=== PATIENT | female | born 1965 ===

== ENCOUNTER → 2021-01-23 09:37 | Outpatient (BNVA) | payer BC, SELFPAY | PROVIDERS: Visit Provider Internal Medicine ==

== ENCOUNTER → 2021-03-18 14:23 | Outpatient (BNVA) | payer BC, SELFPAY | PROVIDERS: Visit Provider Internal Medicine ==

== ENCOUNTER 2024-03-24 17:54 | Inpatient (IN) | payer MEDICAID, SELFPAY ==
--- NOTE | ~2024-03-24 | XR_ITS ---
EXAMINATION: CR RIGHT FOOT. CR RIGHT ANKLE. CLINICAL INFORMATION: Swelling and redness right foot. Rule out osteomyelitis. Pain and swelling of right ankle. COMPARISON: None available. TECHNIQUE: 3 views of the right foot. 3 views of the right ankle. FINDINGS: Right foot and right ankle: There is prominent diffuse soft tissue swelling over the ankle, possibly related to systemic factors rather than local pathology. No acute fracture or dislocation is seen. The ankle mortise is symmetric and intact. No ankle joint effusion is seen. The bones of the right ankle and foot are intact. No abnormal periosteal reaction or focal lytic or destructive bone lesion is seen to suspect osteomyelitis. There is mild osteoarthritic change at the DIP joints of all digits. There is diffuse osteopenia. Prominent excrescences seen arising from the tip of the second digit, presumably an overgrown and hypertrophied nail or something else overlying the patient. XR/XR ankle RT min 3V IMPRESSION: * Prominent soft tissue swelling over the right ankle, possibly related to systemic factors rather than local pathology. Please correlate clinically. * No acute fracture or dislocation in the right foot or right ankle. * No plain film evidence of osteomyelitis. * Mild osteoarthritic changes in the toes.
--- NOTE | ~2024-03-24 | XR_ITS ---
EXAMINATION: CR RIGHT FOOT. CR RIGHT ANKLE. CLINICAL INFORMATION: Swelling and redness right foot. Rule out osteomyelitis. Pain and swelling of right ankle. COMPARISON: None available. TECHNIQUE: 3 views of the right foot. 3 views of the right ankle. FINDINGS: Right foot and right ankle: There is prominent diffuse soft tissue swelling over the ankle, possibly related to systemic factors rather than local pathology. No acute fracture or dislocation is seen. The ankle mortise is symmetric and intact. No ankle joint effusion is seen. The bones of the right ankle and foot are intact. No abnormal periosteal reaction or focal lytic or destructive bone lesion is seen to suspect osteomyelitis. There is mild osteoarthritic change at the DIP joints of all digits. There is diffuse osteopenia. Prominent excrescences seen arising from the tip of the second digit, presumably an overgrown and hypertrophied nail or something else overlying the patient. XR/XR foot RT 2V IMPRESSION: * Prominent soft tissue swelling over the right ankle, possibly related to systemic factors rather than local pathology. Please correlate clinically. * No acute fracture or dislocation in the right foot or right ankle. * No plain film evidence of osteomyelitis. * Mild osteoarthritic changes in the toes.
--- NOTE | ~2024-03-24 | US_ITS ---
EXAMINATION: US VENOUS ULTRASOUND WITH DOPPLER LOWER EXTREMITY, RIGHT CLINICAL INFORMATION: Pain and swelling. COMPARISON: None available. TECHNIQUE: Ultrasound of the deep veins is performed from the hip to the calf with compression sonography and color and pulse Doppler assessment. Spectral analysis with color-flow imaging is performed. FINDINGS: There is normal venous compression and respiratory variation and augmented flow. The visualized common femoral vein, superficial femoral vein, profunda femoral vein, popliteal vein, and the trifurcation region shows no evidence of deep venous thrombosis. There is no significant popliteal fossa cyst. Marked soft tissue edema is noted around the ankle. There are a few prominent inguinal lymph nodes which are normal in morphology and within normal limits in size. If the patient's symptoms persist, followup ultrasound in 5 days 7 days might be of value to exclude proximal propagation from a non-visualized calf vein. US/US venous duplex LE RT IMPRESSION: No DVT demonstrated in the right lower extremity.
[2024-03-24 18:00] VITALS: BP 132/72; PULSE 89; RESP 18; TEMP 37.1; O2SAT 98; BMI 28.2
--- NOTE | 2024-03-24 18:18 | ED.EXTPRO ---
HPI - Extremity Problem General Chief complaint: Extremity Problem Stated complaint: right swollen toe Time Seen by Provider: 03/24/24 20:46 History of Present Illness ED Provider: Cassidy NICOLE Narrative: The patient is a 58-year-old woman who says that she has had problems with a fungal toenail on the 2nd toe of her right foot for some time. Starting about a week ago she has had some pain in the toe and she has had worsening swelling of the foot and the lower leg. She finally came to the hospital for evaluation of this problem tonight. She has had no fever, sweats, chills. She says that she has not been able to get into a decorating equipment setter for any care of the toenail. Related Data Previous Rx's ?Medication ?Instructions ?Recorded naltrexone 50 mg tablet 50 mg PO DAILY 14 days #14 tabs 03/18/21 naltrexone microspheres 380 mg 380 mg IM Q4W 30 days #1 ea 03/18/21 intramuscular suspension,extended release (Vivitrol) Allergies Allergy/AdvReac Type Severity Reaction Status Date / Time No Known Allergies Allergy Verified 03/24/24 18:06 Review of Systems Review of Systems: Yes all other systems are reviewed and are negative [facility] Past Medical History Medical History Generalized anxiety disorder Peripheral neuropathy Psoriasis Social History Social History Alcohol intake: former Smoked in Last 30 Days: Yes Use of substances other than those prescribed or required for medical reasons: No Advance Directives: No Advance Directives Information Provided: No Do you have a plan to hurt others: No Plan Patient : No Physical Exam Vital Signs: Vital Signs: Last Vital Signs Temp 99.7 F 03/24/24 22:00 Pulse 72 03/24/24 22:00 Resp 14 03/24/24 22:00 BP 138/75 03/24/24 22:00 Pulse Ox 100 03/24/24 22:00 O2 Del Method Room Air 03/24/24 22:00 BMI result Body Mass Index 28.2 Const: Other: The patient is awake, alert, pleasant, cooperative. She seems nontoxic. She does not seem in pain or respiratory distress. HEENT: Head: Yes normal to inspection Face and sinus: Yes normal facial exam Mouth: Normal oral and palatal mucosa present Throat: Yes posterior oropharynx normal Eyes: General: appearance normal, both eyes and all related structures Neck: Neck: Yes full ROM and Yes no lymphadenopathy Resp: Effort & Inspection: normal respiratory effort Auscultation: clear to auscultation bilaterally Cardio: Rate: regular rate Rhythm: regular rhythm Heart sounds: S1 normal heart sound present and S2 normal heart sound present GI: Other: Abdomen is soft and nontender Skin: Other: There is swelling to the skin of the right foot and the right lower leg generally. There is a faint reddish hue to the skin but no true erythema. Is some erythema on the skin of the 2nd toe of the right foot. The toenail of the right 2nd toe was distinctly long and abnormal consistent with a fungal infection. Neuro: Other: The patient is awake, alert, pleasant, cooperative. Mental status is normal. Cranial nerves are intact. She moves all extremities normally. She may have some slight diminished sensation in the feet. Extrem: Other: The right lower leg and foot are swollen and mildly tender. The right 2nd toe has a very abnormal toenail. The toe itself is somewhat erythematous. Course Course Course Narrative: This is a rapid medical exam. Defer additional HPI, ROS, PE to primary provider. 58-year-old female here with complaints of pain in her toe which radiates up her right foot and ankle with swelling and redness. Will obtain x-rays, labs -A. 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 The source of the infection problem with a large chronic fungal infection of the toenail of the 2nd toe. I was able to trim this very large toenail with a trauma anna. Given the degree of swelling to the lower leg and ankle and foot we obtained a DVT ultrasound which is negative. X-rays of the foot and ankle has been ordered at triage. The original reading of the foot x-ray was negative. I reviewed the images certain that the cortex of the distal phalanx of the 2nd toe, the toe of greatest concern, looked distinctly irregular and possibly nonintact. I contacted the radiologist who agreed that the cortex of the distal phalanx was not obviously normal and potentially consistent with osteomyelitis. Given the area of the edematous skin of the foot and lower leg and given the question of osteomyelitis in the distal phalanx of the 2nd toe the patient will be admitted to the hospital for further care. The patient will be started on vancomycin. Lab Data 03/24/24 18:59 03/24/24 18:59 Labs: Lab Results 03/24/24 Range/Units 18:59 WBC 10.4 (4.8-10.8) X10*3/uL RBC 4.14 L (4.20-5.50) X10*6/uL Hgb 12.8 (12.0-16.0) g/dl Hct 37.7 (37.0-47.0) % MCV 91.1 (80.0-98.0) fL MCH 30.9 (27.0-33.0) pg MCHC 34.0 (31.0-35.0) g/dl RDW 12.3 (11.0-16.0) % Plt Count 199 (160-400) X10*3/uL MPV 11.0 (9.4-12.3) fL Immature Gran % (Auto) 0.5 H (0.0-0.4) % Neut % (Auto) 72.7 (45-73) % Lymph % (Auto) 15.4 L (20-40) % [place] % (Auto) 9.6 (2-11) % Eos % (Auto) 1.4 (0-4) % Baso % (Auto) 0.4 (0-2) % Lymph # (Auto) 1.6 (1.2-4.9) X10*3/uL [place] # (Auto) 1.0 (0.1-1.2) X10*3/uL Eos # (Auto) 0.2 (0.0-0.4) X10*3/uL Baso # (Auto) 0.0 (0.0-0.2) X10*3/uL Abs Immat Gran (auto) 0.05 H (0.00-0.03) X10*3/uL Absolute Neuts (auto) 7.5 (2.0-8.3) x10*3/uL Absolute Nucleated RBC 0.000 (0.0-0.012) X10*3/uL Nucleated RBC % (auto) 0.0 (0.0-0.2) /100WBC Sodium 136 (135-145) mmol/L Potassium 4.0 (3.3-5.1) mmol/L Chloride 100 (96-108) mmol/L Carbon Dioxide 25 (22-29) mmol/L Anion Gap 15 (12-20) BUN 10 (9-16) mg/dL Creatinine 0.78 (0.5-1.4) mg/dL Estim Creat Clear Calc 98.7 Estimated GFR > 60 Random Glucose 85 (60-115) mg/dL Lactic Acid 1.4 (0.5-2.0) mmol/L Calcium 9.3 (8.4-10.2) mg/dL Total Bilirubin 0.3 (0.0-1.0) mg/dL Direct Bilirubin 0.1 (0.0-0.5) mg/dL AST 12 (5-31) U/L ALT 9 (0-31) U/L Alkaline Phosphatase 79 (39-117) U/L C-Reactive Protein 6.07 H (< or = 0.50) mg/dL Total Protein 7.0 (6.5-8.0) g/dL Albumin 3.8 (3.5-5.0) g/dL Lipase 30 (8-78) U/L Discharge Plan Discharge Clinical Impression: Cellulitis of right leg Patient Disposition: Admitted As Inpatient
[2024-03-24 19:08] LABS: MANUAL DIFF FLAG NO
[2024-03-24 19:18] LABS: Lactic Acid 1.4 mmol/L (0.5-2.0)
[2024-03-24 19:21] LABS: C Reactive Protein 6.07 mg/dL (< or = 0.50)
[2024-03-24 19:24] LABS: Alanine Aminotransferase 9 U/L (0-31); Albumin Level 3.8 g/dL (3.5-5.0); Alkaline Phosphatase 79 U/L (39-117); Anion Gap 15 (12-20); Aspartate Amino Transferase 12 U/L (5-31); Bilirubin Direct 0.1 mg/dL (0.0-0.5); Bilirubin Total 0.3 mg/dL (0.0-1.0); Blood Urea Nitrogen 10 mg/dL (9-16); Calcium 9.3 mg/dL (8.4-10.2); Carbon Dioxide 25 mmol/L (22-29); Chloride 100 mmol/L (96-108); Creatinine Clr Calc Pharmacy 98.7; Estimated Glomerular Filt Rate > 60; Glucose Random 85 mg/dL (60-115); Lipase 30 U/L (8-78); Sodium 136 mmol/L (135-145)
[2024-03-24 19:43] LABS: Basophils Percent Auto 0.4 % (0-2); Eosinophils Absolute Auto 0.2 X10*3/uL (0.0-0.4); Eosinophils Percent Auto 1.4 % (0-4); Hematocrit 37.7 % (37.0-47.0); Hemoglobin 12.8 g/dl (12.0-16.0); Imm Gran Abs Auto 0.05 X10*3/uL (0.00-0.03); Imm Gran Pct Auto 0.5 % (0.0-0.4); Lymphocytes Absolute Auto 1.6 X10*3/uL (1.2-4.9); Lymphocytes Percent Auto 15.4 % (20-40); Mean Corpuscular Hemoglobin 30.9 pg (27.0-33.0); Mean Corpuscular Volume 91.1 fL (80.0-98.0); Monocytes Percent Auto 9.6 % (2-11); Neutrophils Absolute Auto 7.5 x10*3/uL (2.0-8.3); Neutrophils Percent Auto 72.7 % (45-73); Platelet Count 199 X10*3/uL (160-400); Red Blood Count 4.14 X10*6/uL (4.20-5.50); Red Cell Distribution Width 12.3 % (11.0-16.0); White Blood Count 10.4 X10*3/uL (4.8-10.8)
[2024-03-24 20:00] VITALS: BP 108/53; PULSE 77; RESP 14; TEMP 37.1; O2SAT 100
--- NOTE | 2024-03-24 20:18 | PC.NURSE ---
pt from home, a&ox4, respirations even and unlabored. pt reports having an ingrown toe nail on second toe of the right foot for a few weeks, reports x3 days ago she developed swelling of the right leg. pt reports she has pain when walking on the toe and but denies leg pain. +pedal pulses noted. pt noted to have non pitting swelling to the right leg with redness and warmth. pt denies n/v/d. pt ambulatory at this time. reports she has an appointment with podiatry.
[2024-03-24 22:00] VITALS: BP 138/75; PULSE 72; RESP 14; TEMP 37.6; O2SAT 100
--- NOTE | 2024-03-24 22:25 | PM.IMHP ---
History of Present Illness Date of Service: 03/24/24 Chief Complaint: Foot infection This is a 58-year-old female with pertinent history of psoriasis, mood disorder, peripheral neuropathy who presents to the emergency department for concerns of right foot infection. Patient states she noted discoloration of right 2nd toe about a week ago. She has noticed that her right foot with ankle has become red, warm and swollen over the last few days which is progressive. She thinks the infection is spreading. Does have psoriasis which flares up in the summer but is compliant with home topical cream. No history of diabetes mellitus. She denies fever, chills, chest discomfort, palpitations, shortness of breath, abdominal pain, changes in urinary or bowel habits. In the emergency department, x-ray with suspicion of osteomyelitis. Review of Systems Constitutional: Constitutional: Reports no additional constitutional complaints Cardiovascular: Cardiovascular: Reports no additional cardiovascular complaints Respiratory: Respiratory: Reports no additional respiratory complaints Gastrointestinal: Gastrointestinal: Reports no additional gastrointestinal complaints Genitourinary: Genitourinary: Reports no additional female genitourinary complaints [facility] Medical History Generalized anxiety disorder Peripheral neuropathy Psoriasis Functional capacity: independent ambulation Pertinent family history: No family history of early CAD Social History Alcohol intake: former Smoked in Last 30 Days: Yes Use of substances other than those prescribed or required for medical reasons: No Advance Directives: No Advance Directives Information Provided: No Do you have a plan to hurt others: No Plan Patient : No Meds Allergies Allergy/AdvReac Type Severity Reaction Status Date / Time No Known Allergies Allergy Verified 03/24/24 18:06 Active Medications: Current Medications Sodium Chloride (Ns) 1,000 mls @ 999 mls/hr IV .Q1H1M [place] Stop: 03/24/24 23:30 Physical Exam Vital Signs and Narrative: Vital Signs: Last Vital Signs Temp 99.7 F 03/24/24 22:00 Pulse 72 03/24/24 22:00 Resp 14 03/24/24 22:00 BP 138/75 03/24/24 22:00 Pulse Ox 100 03/24/24 22:00 O2 Del Method Room Air 03/24/24 22:00 BMI result Body Mass Index 28.2 Middle-aged female lying in bed in no distress Neck supple, no JVD Regular rate and rhythm, S1-S2 heard Regular breath sounds bilaterally, no wheezing or crackles appreciated Abdomen soft nontender, no guarding, no rigidity Patient is awake, alert and oriented to self, place, time and person ; no focal motor deficit Psych: Normal mood Right foot with erythema, swelling and warmth ; right 2nd toenail with yellow discoloration, thickening Erythematous macules, papules and plaques with scaling on extremities Results Labs 03/24/24 18:59 03/24/24 18:59 Labs: Laboratory Results - last 24 hr 03/24/24 18:59 MCV 91.1 MCH 30.9 MCHC 34.0 RDW 12.3 Plt Count 199 MPV 11.0 Immature Gran % (Auto) 0.5 H Neut % (Auto) 72.7 Lymph % (Auto) 15.4 L [place] % (Auto) 9.6 Eos % (Auto) 1.4 Baso % (Auto) 0.4 Lymph # (Auto) 1.6 [place] # (Auto) 1.0 Eos # (Auto) 0.2 Baso # (Auto) 0.0 Abs Immat Gran (auto) 0.05 H Absolute Neuts (auto) 7.5 Absolute Nucleated RBC 0.000 Nucleated RBC % (auto) 0.0 Anion Gap 15 Estim Creat Clear Calc 98.7 Estimated GFR > 60 Random Glucose 85 Lactic Acid 1.4 Calcium 9.3 Total Bilirubin 0.3 Direct Bilirubin 0.1 AST 12 ALT 9 Alkaline Phosphatase 79 C-Reactive Protein 6.07 H Total Protein 7.0 Albumin 3.8 Lipase 30 Imaging Radiologist's Impressions: Impressions Ankle X-Ray 03/24/24 18:46 IMPRESSION: * Prominent soft tissue swelling over the right ankle, possibly related to systemic factors rather than local pathology. Please correlate clinically. * No acute fracture or dislocation in the right foot or right ankle. * No plain film evidence of osteomyelitis. * Mild osteoarthritic changes in the toes. Foot X-Ray 03/24/24 18:46 IMPRESSION: * Prominent soft tissue swelling over the right ankle, possibly related to systemic factors rather than local pathology. Please correlate clinically. * No acute fracture or dislocation in the right foot or right ankle. * No plain film evidence of osteomyelitis. * Mild osteoarthritic changes in the toes. Assessment and Plan (1) Cellulitis of right leg: Status: Acute Plan This is a 58-year-old female with pertinent history of psoriasis, mood disorder, peripheral neuropathy who presents to the emergency department for concerns of right foot infection. #. Right foot cellulitis with osteomyelitis: Noted osteomyelitis changes on x-ray of the foot. Initiating IV vancomycin. No sepsis. Consulted Infectious Disease #. Onychomycosis: Initiated oral terbinafine #. Psoriasis: Continue home topical medication #. Mood disorder: Continue home anxiolytic #. Peripheral neuropathy: On gabapentin Med rec pending DVT prophylaxis: Lovenox Full code Admit as inpatient and will require two night minimum hospital stay for IV antibiotics (as above), which is not possible in a lesser acute setting. Quality Stroke Does the patient have a stroke diagnosis?: No VTE Prior VTE?: No VTE Risk Level:: Medical - moderate - high VTE Device Contraindication: Treatment Not Indicated VTE Drug Contraindication: N/A - Med Ordered
[2024-03-24] MEDS: 0.9 % Sodium Chloride 1,000 ML 999 ML IV (22:31)
--- NOTE | 2024-03-24 22:32 | PC.NURSE ---
20G placed in left forearm, iv fluids administered at this time.
[2024-03-24] MEDS: Enoxaparin Sodium 40 MG/0.4 ML SYRINGE SUBCUT (23:11)
--- NOTE | 2024-03-24 23:31 | PC.NURSE ---
report given to Eleanor in [facility].
[2024-03-25 00:07] VITALS: BP 150/71; PULSE 79; RESP 17; TEMP 36.6; O2SAT 98
--- NOTE | 2024-03-25 04:45 | PC.NURSE ---
Pt A&O x4. VSS. Pt arrived on unit with vanco infusing. Pt has no complaints. Redness and edema to RLE. Pt has cane at bedside, up to bathroom x1. Call barnett within reach. Pt able to make needs known.
[2024-03-25 04:54] LABS: MANUAL DIFF FLAG NO
[2024-03-25 04:58] LABS: Basophils Percent Auto 0.5 % (0-2); Eosinophils Absolute Auto 0.2 X10*3/uL (0.0-0.4); Eosinophils Percent Auto 1.9 % (0-4); Hematocrit 34.7 % (37.0-47.0); Hemoglobin 11.9 g/dl (12.0-16.0); Imm Gran Abs Auto 0.04 X10*3/uL (0.00-0.03); Imm Gran Pct Auto 0.5 % (0.0-0.4); Mean Corpuscular HGB Conc 34.3 g/dl (31.0-35.0); Mean Corpuscular Hemoglobin 30.8 pg (27.0-33.0); Mean Corpuscular Volume 89.9 fL (80.0-98.0); Mean Platelet Volume 10.4 fL (9.4-12.3); Monocytes Absolute Auto 0.8 X10*3/uL (0.1-1.2); Monocytes Percent Auto 9.9 % (2-11); Neutrophils Percent Auto 62.2 % (45-73); Platelet Count 185 X10*3/uL (160-400); Red Blood Count 3.86 X10*6/uL (4.20-5.50); Red Cell Distribution Width 12.2 % (11.0-16.0)
[2024-03-25 05:13] LABS: Anion Gap 10 (12-20); Blood Urea Nitrogen 8 mg/dL (9-16); Calcium 8.5 mg/dL (8.4-10.2); Carbon Dioxide 27 mmol/L (22-29); Chloride 107 mmol/L (96-108); Creatinine Clr Calc Pharmacy 113.2; Estimated Glomerular Filt Rate > 60; Glucose Random 105 mg/dL (60-115); Potassium 4.2 mmol/L (3.3-5.1); Sodium 140 mmol/L (135-145)
--- NOTE | 2024-03-25 08:34 | PHA.PROG ---
Admission Date/Time: March 24, 2024 22:24 Indication: BONE AND JOINT Weight in k.2 kg Adjusted body weight in Kg: [place] body weight in Kg: Obesity Dosing Indication % IBW: Serum Creatinine - Last 168 Hours 03/24/24 03/25/24 18:59 04:50 Creatinine 0.78 0.68 Estimated CrCl and GFR - Last 168 Hours 03/24/24 03/25/24 18:59 04:50 Estim Creat Clear Calc 98.7 113.2 Estimated GFR > 60 > 60 Vancomycin Loading Dose: 2000 MG Current Vancomycin Dosing Regimen:1250 MG Q 12 HOURS Vancomycin Monitoring using AUC goal of 400 - 600 range with trough as surrogate marker: Date and Time for next Vancomycin Level to be drawn: 03/26/24 0900 Pharmacist Comments on Vancomycin Plan: Vancomycin dosing will take advantage of [employer] as a clinical decision support tool that uses Bayesian modeling to calculate individual patient's pharmacokinetic parameters and forecast the patient's drug concentration time course with the target goal AUC 24 range of 400 - 600 mg/L/hr.
--- NOTE | 2024-03-25 09:20 | PHA.MEDREC ---
Addendum entered by Jessica Gandhi RPh 03/25/24 09:58: Reviewed by [facility] Original Note: Pharmacy Consult ? Medication Reconciliation Pharmacy has completed the medication reconciliation.confirmed with patient.
[2024-03-25] MEDS: 0.9 % Sodium Chloride Flush 3 ML SYRINGE IVFLUSH ×2 (09:54→16:31)
[2024-03-25 10:43] VITALS: BP 95/54; PULSE 57; RESP 14; TEMP 36.8; O2SAT 98
[2024-03-25] MEDS: vancomycin HCL 1,250 MG in 0.9 % Sodium Chloride 250 ML 166.67 MG IV (11:21)
[2024-03-25 12:36] VITALS: BP 114/54; PULSE 63; RESP 20; TEMP 36.9; O2SAT 97
--- NOTE | 2024-03-25 14:14 | HO.PM.IMPN ---
Subjective Subjective Date of Service: 03/26/24 Interval History: Being followed for right lower extremity cellulitis. Complaining of persistent swelling, discomfort denies fever, no chills, tolerating diet no nausea, no vomiting, no abdominal pain no other acute issues. Review of Systems All other system reviewed and are negative Physical Exam Vital Signs: Vital Signs: Last Vital Signs Temp 98.4 F 03/25/24 12:36 Pulse 63 03/25/24 12:36 Resp 20 03/25/24 12:36 BP 114/54 L 03/25/24 12:36 Pulse Ox 97 03/25/24 12:36 O2 Del Method Room Air 03/25/24 12:36 BMI result Body Mass Index 28.2 Const: Other: General resting comfortably in no acute distress. Neck no JVD. CVS regular rate rhythm, Respiratory lungs clear to auscultation, no respiratory distress, no wheeze, no rhonchi. Gastrointestinal abdomen soft, non tender, bowel sounds audible, no guarding , no rigidity. Extremities right lower extremity warmth, redness swelling extending from dorsum of foot to left lower leg, dry scaly skin of toes, left 2nd toe tender to touch, big toe nontender Neuro non focal Psych appropriate affect Objective Data Active Medications Acetaminophen (Acetaminophen 325 Mg Tablet) 650 mg PO Q6H PRN PRN Reason: Pain, Mild (Pain Scale 1-3), fever or headache Calcium Carbonate (Calcium Carbonate 750 Mg Tab.Chew) 750 mg PO Q4H PRN PRN Reason: Heartburn Enoxaparin Sodium (Enoxaparin Sodium 40 Mg/0.4 Ml Syringe) 40 mg SUBCUT Q24H [facility] Last Admin: 03/24/24 23:11 Dose: 40 mg Documented By: CHONG Vancomycin HCl 1,250 mg/ (Sodium Chloride) 250 mls @ 166.667 mls/hr IV Q12H [facility] Last Infusion: 03/25/24 13:01 Dose: Infused Documented By: LEOPOLDO Magnesium Hydroxide (Milk Of Magnesia 30 Ml Oral.Susp) 30 ml PO DAILY PRN PRN Reason: Constipation Melatonin (Melatonin 3 Mg Tablet) 6 mg PO BEDTIME PRN PRN Reason: Insomnia Non-Formulary Medication (Terbinafine) 250 mg PO DAILY [facility] Ondansetron HCl (Ondansetron Hcl 4 Mg/2 Ml Vial) 4 mg IVPUSH Q8H PRN PRN Reason: Nausea and Vomiting Pharmacy Consult (Consult Rx Vancomycin Dosing) 1 each MISCELLANE DAILY PRN PRN Reason: Consult order Sodium Chloride (0.9 % Sodium Chloride Flush 3 Ml Syringe) 3 ml IVFLUSH QSHIFT [facility] Last Admin: 03/25/24 09:54 Dose: 3 ml Documented By: CHRISTINE Labs 03/25/24 04:50 03/26/24 05:20 Labs: Laboratory Results - last 24 hr 03/24/24 03/25/24 18:59 04:50 MCV 91.1 89.9 MCH 30.9 30.8 MCHC 34.0 34.3 RDW 12.3 12.2 Plt Count 199 185 MPV 11.0 10.4 Immature Gran % (Auto) 0.5 H 0.5 H Neut % (Auto) 72.7 62.2 Lymph % (Auto) 15.4 L 25.0 [place] % (Auto) 9.6 9.9 Eos % (Auto) 1.4 1.9 Baso % (Auto) 0.4 0.5 Lymph # (Auto) 1.6 2.0 [place] # (Auto) 1.0 0.8 Eos # (Auto) 0.2 0.2 Baso # (Auto) 0.0 0.0 Abs Immat Gran (auto) 0.05 H 0.04 H Absolute Neuts (auto) 7.5 5.0 Absolute Nucleated RBC 0.000 0.000 Nucleated RBC % (auto) 0.0 0.0 Anion Gap 15 10 L Estim Creat Clear Calc 98.7 113.2 Estimated GFR > 60 > 60 Random Glucose 85 105 Lactic Acid 1.4 Calcium 9.3 8.5 D Total Bilirubin 0.3 Direct Bilirubin 0.1 AST 12 ALT 9 Alkaline Phosphatase 79 C-Reactive Protein 6.07 H Total Protein 7.0 Albumin 3.8 Lipase 30 Assessment and Plan (1) Generalized anxiety disorder: Status: Acute (2) Cellulitis of right leg: Status: Acute Plan 58-year-old female with pertinent history of psoriasis, mood disorder, peripheral neuropathy who presents to the emergency department for concerns of right foot infection. #. Right foot cellulitis /2nd toe acute osteo On IV vancomycin started 03/24. No sepsis, CRP 6.07 X-ray right foot and ankle showed no acute fracture, or dislocation, osteomyelitis distal phalanx left toe, mild osteoarthritic changes in the toes Venous Doppler showed no DVT, follow CRP Follow blood cultures and ID eval. #. Onychomycosis: terbinafine 250mg #. Psoriasis: stable #. Mood disorder: Continue home anxiolytic #. Peripheral neuropathy: gabapentin DVT prophylaxis: Lovenox Full code Patient will require continued inpatient hospitalization for IV antibiotics (as above), which is not possible in a lesser acute setting. Quality Stroke Does the patient have a stroke diagnosis?: No VTE Prior VTE?: No VTE Risk Level:: Medical - moderate - high VTE Device Contraindication: Treatment Not Indicated VTE Drug Contraindication: N/A - Med Ordered
[2024-03-25 15:33] VITALS: BP 111/59; PULSE 58; RESP 16; TEMP 36.4; O2SAT 99
[2024-03-25 19:42] VITALS: BP 122/58; PULSE 60; RESP 16; TEMP 36.4; O2SAT 99
[2024-03-25] MEDS: vancomycin HCL 1,250 MG in 0.9 % Sodium Chloride 250 ML 166.66 MG IV (21:33)
[2024-03-25] MEDS: Gabapentin 300 MG CAPSULE PO (21:34)
[2024-03-25] MEDS: Enoxaparin Sodium 40 MG/0.4 ML SYRINGE SUBCUT (21:34)
[2024-03-26 03:24] VITALS: BP 124/58; PULSE 72; RESP 16; TEMP 36.3; O2SAT 98
[2024-03-26 06:30] LABS: Creatinine Clr Calc Pharmacy 111.6; Estimated Glomerular Filt Rate > 60
[2024-03-26 06:59] VITALS: BP 109/55; PULSE 56; RESP 16; TEMP 36; O2SAT 97
[2024-03-26] MEDS: Escitalopram Oxalate 10 MG TABLET PO (08:42)
[2024-03-26] MEDS: Gabapentin 100 MG CAPSULE PO (08:43)
[2024-03-26] MEDS: 0.9 % Sodium Chloride Flush 3 ML SYRINGE IVFLUSH (08:43)
[2024-03-26 08:47] LABS: Vancomycin Trough 5.6 mcg/mL (10.0-20.0)
--- NOTE | 2024-03-26 09:56 | MHC.CM.PN ---
PT LIVES WITH FAMILY IS INDEPEDENT WILL DRIVE SELF HIOME HER CAR IN [place]
--- NOTE | 2024-03-26 10:41 | HE.PHANOTE ---
RE: VANCO DOSING Random came back as 5.6. All values entered were checked to make sure they were put in correctly. Dose is increased to 1500 mg q8h, next random is scheduled for 03/27/2024 @0900.
[2024-03-26] MEDS: vancomycin HCL 1,500 MG in 0.9 % Sodium Chloride 500 ML 333.33 MG IV (11:49)
--- NOTE | 2024-03-26 13:48 | MHC.CM.PN ---
pt left ama
--- NOTE | 2024-03-26 14:20 | PM.DS ---
DS: Providers Provider Date of Service: 03/26/24 Date of admission: 03/24/24 22:24 Primary care physician: Alia Crocker PA-C Consults: 03/24/24 22:31 Consult to Infectious Diseases Routine Consulting Provider: [facility] [place] [facility] Reason for consultation: osteomyelitis DS: Diagnosis Discharge Diagnosis (1) Generalized anxiety disorder: Status: Acute (2) Cellulitis of right leg: Status: Acute DS: Summary Hospital Course Hospital Course: History of present illness: Date of Service: 03/24/24 Chief Complaint: Foot infection This is a 58-year-old female with pertinent history of psoriasis, mood disorder, peripheral neuropathy who presents to the emergency department for concerns of right foot infection. Patient states she noted discoloration of right 2nd toe about a week ago. She has noticed that her right foot with ankle has become red, warm and swollen over the last few days which is progressive. She thinks the infection is spreading. Does have psoriasis which flares up in the summer but is compliant with home topical cream. No history of diabetes mellitus. She denies fever, chills, chest discomfort, palpitations, shortness of breath, abdominal pain, changes in urinary or bowel habits. In the emergency department, x-ray with suspicion of osteomyelitis. Hospital course: 58-year-old female with pertinent history of psoriasis, mood disorder, peripheral neuropathy presented to [facility] with right foot swelling, patient admitted to [facility] with a diagnosis of right foot cellulitis and suspicion for right 2nd toe acute osteomyelitis patient treated with IV vancomycin no sepsis was noted, CRP 6.07 x-ray right foot and ankle showed no acute fractures or dislocation, showed osteomyelitis distal phalanx left toe and mild osteoarthritic changes in the toes venous Doppler study showed no DVT blood cultures were obtained at the time of discharge blood cultures preliminary are negative, right leg swelling improved patient decided to leave hospital against medical advice did not wait to be seen by infectious disease and for final blood culture result since she did not wanted to be in the hospital she understood the consequences of bacteremia and need for ID follow-up for choice and duration of antibiotic but however patient showed understanding offered disease but left hospital against medical advice will discharge patient on doxycycline 1 tablet twice daily for 7 more base and recommended outpatient follow-up with primary care physician. She was noted to have onychomycosis recommend outpatient follow-up with PCP, she is recommended to continue all home medication for mood disorder and peripheral neuropathy. History of Psoriasis: stable Time Attestation Discharge Coordination Time (in mins): 34 Quality: Safe Use of Opioids Does Pt have an Active Cancer Diagnosis on the Problem List?: No Quality: Stroke Does the patient have a stroke diagnosis?: No Physical Exam Vital Signs: Vital Signs: Last Vital Signs Temp 96.8 F 03/26/24 06:59 Pulse 56 03/26/24 06:59 Resp 16 03/26/24 06:59 BP 109/55 L 03/26/24 06:59 Pulse Ox 97 03/26/24 06:59 O2 Del Method Room Air 03/26/24 06:59 BMI result Body Mass Index 28.2 Const: Other: General resting comfortably in no acute distress. Neck no JVD. CVS regular rate rhythm, Respiratory lungs clear to auscultation, no respiratory distress, no wheeze, no rhonchi. Gastrointestinal abdomen soft, non tender, bowel sounds audible, no guarding , no rigidity. Extremities right lower extremity swelling and redness improved,dry scaly skin of toes, left 2nd toe, less swelling and tenderness, dry skin of the toes thick nails. Neuro non focal Psych appropriate affect DS: Data Data Completed and Pending Labs on day of discharge: Laboratory Results - last 24 hr 03/26/24 03/26/24 05:20 07:50 Creatinine 0.69 Estim Creat Clear Calc 111.6 Estimated GFR > 60 Vancomycin Trough 5.6 L Preliminary micro results at discharge 03/24/24 18:59 Blood Culture - Preliminary Blood - Venous No growth after 24 hours. 03/24/24 18:59 Blood Culture - Preliminary Blood - Venous No growth after 24 hours. Discharge Plan Discharge Anticipated Discharge Date/Time: 03/26/24 14:16 Patient Disposition: Left Against Medical Advice Discharge Diagnosis: Cellulitis right leg Referrals: Alia Crocker PA-C [Primary Care Provider] - 1 Week Discharge Medications: New doxycycline monohydrate 100 mg capsule 100 mg PO BID Qty: 14 0RF Continued citalopram 20 mg tablet 20 mg PO DAILY@0900 gabapentin 100 mg capsule 100 mg PO DAILY@0900 gabapentin 100 mg capsule 300 mg PO BEDTIME clobetasol 0.05 % solution 1 appl topical BID PRN (Reason: Itching) Discharge Orders: Discharge Order (Routine); Ordered 03/26/24 Ordered By: Nguyen Webster Diet: Advance to usual diet Activity on Discharge: As tolerated Print Language: Cymro Care Plan Goals: Right leg cellulitis/left against medical advice recommend to take doxycycline 1 tablet twice daily and follow-up with primary care physician Health Concerns: Resume home medication for mood disorder Plan of Treatment: Outpatient follow-up with primary care physician call for appointment Assessment: As above
--- NOTE | 2024-03-28 09:30 | PC.NURSE ---
Late entry for 03/26/24 at 1330. Pt. left AMA. Education provided by this Nurse and the Hospitalist about importance of finishing course of antibiotics, and infection, but pt. said she didn't care and she didn't want to wait for Infectious and any other treatments ordered.
== END 2024-03-26 14:25 | disposition left against medical advice (07) | DRG 383 ==
LOC: HO.ED 22:29 → HO.EDOVER 22:39 → HO.S3 03-25 11:03
PROVIDERS: Nurse Practitioner Family; Admitting Provider Student in an Organized Health Care Education/Training Program; Emergency Provider Emergency Medicine; PCP Physician Assistant; Visit Provider Hospitalist
DX: L03.115 Cellulitis of right lower limb (principal); M86.171 Other acute osteomyelitis, right ankle and foot; B35.1 Tinea unguium; F17.210 Nicotine dependence, cigarettes, uncomplicated; G62.9 Polyneuropathy, unspecified; F41.1 Generalized anxiety disorder; L40.9 Psoriasis, unspecified; Z71.6 Tobacco abuse counseling; Z79.899 Other long term (current) drug therapy
CPT/HCPCS: 36415; 73610; 73620; 80048; 80076; 80202; 82565; 83605; 83690; 85025; 86140; 87040; 93971; 99285; J1650; J3370; J3371

== ENCOUNTER → 2024-03-24 22:24 | Outpatient (BNV) | payer MEDICAID, SELFPAY | PROVIDERS: Admitting Provider Student in an Organized Health Care Education/Training Program; Emergency Provider Emergency Medicine; PCP Physician Assistant; Visit Provider Student in an Organized Health Care Education/Training Program | DX: L03.115 Cellulitis of right lower limb (principal); F41.1 Generalized anxiety disorder | CPT/HCPCS: 99223; 99232; 99239 ==